=== PATIENT | female | born 1950 | race Caucasian/White ===

== ENCOUNTER → 2023-08-19 | Outpatient (CLI) | payer MEDICARE, BC ==
[~2023-08-19] MED LIST: MACROBID PO; ONDA4TAB6 PO; PHEN-786 PO
== END | disposition home or self-care (01) ==
LOC: MRI 15:35
PROVIDERS: ATTEND Podiatrist Foot & Ankle Surgery
DX: M24.575 Contracture, left foot (principal); M65.872 Other synovitis and tenosynovitis, left ankle and foot; M72.2 Plantar fascial fibromatosis; M79.89 Other specified soft tissue disorders; M79.672 Pain in left foot
CPT/HCPCS: 73721